=== PATIENT | male | born 1945 | race Caucasian/White ===

== ENCOUNTER 2017-08-03 06:09 | Inpatient (IN) | payer OTHER, MEDICARE ==
[2017-08-03] MEDS ORDERED: LORazepam 2 MG/ML INJ IV STA (06:24)
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
[2017-08-03 06:47] LABS: Basophils # (A) 0.1 k/uL (0-0.2); Basophils % (A) 1 %; Eosinophils # (A) 0.2 k/uL (0-0.7); Eosinophils % (A) 3 %; HCT 43.3 % (39.0-53.0); HGB 14.9 gm/dL (13.0-17.5); Lymphocytes # (A) 1.5 k/uL (1.0-4.8); Lymphocytes % (A) 24 %; MCH 34.4 pg (25.0-35.0); MCHC 34.5 g/dL (31.0-37.0); MCV 99.8 fL (80.0-100.0); Monocytes # (A) 0.3 k/uL (0-1.0); Monocytes % (A) 5 %; Neutrophils # (A) 3.9 k/uL (1.3-7.7); Neutrophils % (A) 66 %; Platelet Count 182 k/uL (150-450); RBC 4.34 m/uL (4.30-5.90); RDW 12.9 % (11.5-15.5)
[2017-08-03 07:02] LABS: ALT 26 U/L (21-72); AST 28 U/L (17-59); Alkaline Phosphatase 160 U/L (38-126); Anion Gap 12 mmol/L; Blood Urea Nitrogen 21 mg/dL (9-20); Calcium 9.3 mg/dL (8.4-10.2); Carbon Dioxide 24 mmol/L (22-30); Chloride 104 mmol/L (98-107); Glucose 144 mg/dL (74-99); Phenytoin (Dilantin) <3.0 ug/mL; Potassium 3.5 mmol/L (3.5-5.1); Sodium 140 mmol/L (137-145); Total Bilirubin 0.4 mg/dL (0.2-1.3); Total Protein 6.6 g/dL (6.3-8.2)
--- NOTE | 2017-08-03 07:11 | CT ---
EXAMINATION TYPE: CT brain cspine wo con DATE OF EXAM: 08/03/2017 COMPARISON: CT brain February 03, 2015. CT brain and cervical spine November 25, 2013 HISTORY: seizure with headache and neck pain. CT DLP: 1567.3 mGycm. Automated Exposure Control for Dose Reduction was Utilized. TECHNIQUE: CT scan of the head and cervical spine are performed without contrast. FINDINGS: There is no acute intracranial hemorrhage or midline shift identified. There is mild vent ricular and sulcal prominence. There is mild low-attenuation in the periventricular white matter. The calvarium is intact The globes are intact and the visualized sinuses are clear. Cervical spine is visualized in its entirety from C1 through upper thoracic levels and demonstrates s traightened alignment without evidence of acute fracture or dislocation. Prevertebral soft tissue ap pears within normal limits. The C1-C2 articulation is within normal limits on the coronal images. Vertebral body heights are maintained. There is mild to moderate disc space narrowing and spurring C5 -C6, C6-C7, and C7-T1 levels redemonstrated. Spinal canal is grossly preserved. Review of axial images shows right-sided uncovertebral facet degenerative changes C2-C3 and C3-C4 lev el and more prominent findings right C4-C5 level contributing to moderate to severe right-sided neura l foraminal narrowing on axial image 51. Thyroid gland is normal in size. Visualized lung apices show asymmetric dependent groundglass opacity possible atelectasis versus infiltrate on the right side, c orrelate clinically. IMPRESSION: 1. There is no acute fracture or dislocation evident in the cervical spine. 2. No acute intracranial hemorrhage or midline shift is seen.
[2017-08-03] MEDS ORDERED: PHENYTOIN SODIUM INJ 50 MG/ML 2 ML VIAL IVP STA (07:28)
[2017-08-03] MEDS ORDERED: PHENYTOIN SODIUM INJ 1,000 MG in SODIUM CHLORIDE 0.9% 100 ML IVPB STA (07:30)
[2017-08-03] MEDS ORDERED: HYDROmorphone 4 MG/ML 1 ML SYRINGE IVP PRN (07:33)
[2017-08-03] MEDS ORDERED: NALOXONE 0.4 MG/ML 1 ML VIAL IV PRN (07:33)
[2017-08-03] MEDS ORDERED: LORazepam 2 MG/ML INJ IV PRN (07:33)
[2017-08-03] MEDS ORDERED: ONDANSETRON 4 MG/2 ML VIAL IVP PRN (07:33)
[2017-08-03 10:08] LABS: Amphetamine Screen,Urine Not Detected (NotDetected); Barbiturate Screen,Urine Detected (NotDetected); Benzodiazepines Screen,Urine Not Detected (NotDetected); Cocaine Screen,Urine Not Detected (NotDetected); Methadone Screen, Urine Not Detected (NotDetected); Opiate Screen,Urine Not Detected (NotDetected); Oxycodone Screen, Urine Not Detected (NotDetected); Phencyclidine Screen,Urine Not Detected (NotDetected); Tricyclic Antidepressant,Urine Not Detected (NotDetected); Urn Cannabinoid Scrn Not Detected (NotDetected)
[2017-08-03] MEDS ORDERED: ALPRAZolam 0.25 MG TAB PO PRN (10:20)
[2017-08-03 11:21] LABS: Troponin I 0.033 ng/mL (0.000-0.034)
[2017-08-03 11:31] LABS: Creatine Kinase MB 3.9 ng/mL (0.0-2.4)
[2017-08-03] MEDS: ACETAMINOPHEN TAB 325 MG TAB PO PRN ×2 (13:15→20:47)
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
[2017-08-03] MEDS: PHENYTOIN SODIUM EXTENDED 100 MG CAP PO SCH (15:54)
--- NOTE | 2017-08-03 16:45 | ECHOF ---
Referral Reason:arrhythmia MEASUREMENTS -------- HEIGHT: 175.3 cm WEIGHT: 78.5 kg BP: 113/75 RVIDd: 3.0 cm (< 3.3) IVSd: 1.1 cm (0.6 - 1.1) LVIDd: 4.9 cm (3.9 - 5.3) LVPWd: 1.1 cm (0.6 - 1.1) IVSs: 1.6 cm LVIDs: 3.3 cm LVPWs: 1.6 cm LA Diam: 3.2 cm (2.7 - 3.8) LAESV Index (A-L): 18.94 ml/m Ao Diam: 3.4 cm (2.0 - 3.7) AV Cusp: 2.2 cm (1.5 - 2.6) MV EXCURSION: 16.594 mm (> 18.000) MV EF SLOPE: 54 mm/s (70 - 150) EPSS: 0.6 cm MV E Freddy: 0.70 m/s MV DecT: 309 ms MV A Freddy: 1.06 m/s MV E/A Ratio: 0.66 AV maxP.07 mmHg AV meanP.67 mmHg RAP: 5.00 mmHg RVSP: 36.22 mmHg FINDINGS -------- Sinus rhythm. This was a technically good study. The left ventricular size is normal. There is borderline concentric left ventricular hypertrophy. Overall left ventricular systolic function is normal with, an EF between 55 - 60 %. The right ventricle is normal in size. Normal LA size by volume 22+/-6 ml/m2. The right atrium is normal in size. There is mild aortic valve sclerosis. There is mild aortic regurgitation. The mitral valve is normal. There is trace mitral regurgitation. Mild tricuspid regurgitation present. There is mild pulmonary hypertension. The right ventricular systolic pressure, as measured by Doppler, is 36.22mmHg. There is no pulmonic regurgitation present. The aortic root size is normal. Normal inferior vena cava with normal inspiratory collapse consistent with estimated right atrial pre ssure of 5 mmHg. There is no pericardial effusion. CONCLUSIONS -------- 1. Sinus rhythm. 2. This was a technically good study. 3. The left ventricular size is normal. 4. There is borderline concentric left ventricular hypertrophy. 5. Overall left ventricular systolic function is normal with, an EF between 55 - 60 %. 6. Normal LA size by volume 22+/-6 ml/m2. 7. There is mild aortic valve sclerosis. 8. There is mild aortic regurgitation. 9. There is trace mitral regurgitation. 10. Mild tricuspid regurgitation present. 11. There is mild pulmonary hypertension. 12. The right ventricular systolic pressure, as measured by Doppler, is 36.22mmHg. 13. There is no pulmonic regurgitation present. 14. The aortic root size is normal. 15. Normal inferior vena cava with normal inspiratory collapse consistent with estimated right atrial pressure of 5 mmHg. 16. There is no pericardial effusion. CUP MACHINE OPERATOR: Nathaly Balbuena RDCS
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
[2017-08-03] MEDS: HEPARIN SODIUM,PORCINE 5,000 UNIT/ML 1 ML VIAL SQ SCH (20:43)
[2017-08-03] MEDS ORDERED: HYDROmorphone 0.5 MG/0.5 ML SYRINGE IVP PRN (20:49)
[2017-08-03] MEDS ORDERED: ASPIRIN 81 MG PO SCH (21:00)
[2017-08-03] MEDS ORDERED: TRIAMCINOLONE ACET 0.1% OINTMENT 15 GM TUBE TOPICAL SCH (21:00)
[2017-08-03] MEDS ORDERED: ATORVASTATIN 20 MG TAB PO SCH (21:00)
[2017-08-03 23:31] VITALS: RESP 16
[2017-08-04] MEDS ORDERED: PANTOPRAZOLE 40 MG TABLET PO SCH (07:30)
[2017-08-04 07:45] VITALS: BP 92/55; PULSE 68; TEMP 97.4
[2017-08-04 07:51] LABS: Basophils % (A) 1 %; Eosinophils # (A) 0.1 k/uL (0-0.7); Eosinophils % (A) 2 %; HCT 44.8 % (39.0-53.0); HGB 14.5 gm/dL (13.0-17.5); Lymphocytes # (A) 0.9 k/uL (1.0-4.8); Lymphocytes % (A) 20 %; MCH 33.6 pg (25.0-35.0); MCHC 32.4 g/dL (31.0-37.0); MCV 103.9 fL (80.0-100.0); Macrocytosis Slight; Mean Platelet Volume 6.6; Monocytes # (A) 0.4 k/uL (0-1.0); Monocytes % (A) 9 %; Neutrophils % (A) 68 %; Platelet Count 176 k/uL (150-450); RBC 4.32 m/uL (4.30-5.90); RDW 12.9 % (11.5-15.5); WBC 4.5 k/uL (3.8-10.6)
[2017-08-04 08:05] LABS: Calcium 9.3 mg/dL (8.4-10.2); Potassium 4.4 mmol/L (3.5-5.1)
[2017-08-04 08:16] LABS: Phenytoin (Dilantin) 12.3 ug/mL
[2017-08-04] MEDS: PHENYTOIN SODIUM EXTENDED 100 MG CAP PO SCH (08:53)
[2017-08-04] MEDS: HEPARIN SODIUM,PORCINE 5,000 UNIT/ML 1 ML VIAL SQ SCH (08:53)
--- NOTE | 2017-08-04 19:40 | EEG ---
ELECTROENCEPHALOGRAM REPORT DATE OF EE08/04/2017. REFERRING PHYSICIAN: Dr. Glynn. CONSULTING/INTERPRETING PHYSICIAN: Dr. Naga Blue MD ELECTROENCEPHALOGRAPHIC EXAMINATION REPORT: INDICATION FOR EXAMINATION: This patient is a 72-year-old male with history of underlying seizure disorder. Patient admitted with breakthrough seizures and subtherapeutic Dilantin level. AGE: [age]. EEG FINDINGS: A routine 21 channel awake digital EEG recording was accomplished utilizing the 10-20 international system with bipolar and referential montages some. The background activity in the most alert resting state consists of a low to medium amplitude, fairly well-developed well sustained 7-8 Hz activity over the posterior head regions. This posterior rhythm attenuates to eye opening. There is a small amount of low amplitude 18-20 Hz beta activity seen maximally over the anterior head regions. Muscle and movement artifact was observed on a few occasions during the tracing. Hyperventilation was not performed. Photic stimulation at flash frequencies of 2-30 Hz produced a minimal occipital driving response. No epileptiform discharges were seen. IMPRESSION: This EEG is within normal limits for the patient's age. The EEG failed to reveal any focal, lateralized, or epileptiform abnormalities. Clinical correlation is recommended. MMODL / IJN: [id number] /
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
== END 2017-08-04 15:35 | disposition home or self-care (01) | DRG 101 ==
LOC: EC 06:09 → 5ONC 07:34 → 5MS5E 08-04 03:57
PROVIDERS: ADMIT Hospitalist; ATTEND Hospitalist
DX: G40.209 Localization-related (focal) (partial) symptomatic epilepsy and epileptic syndromes with complex partial seizures, not intractable, without status epilepticus (principal); N18.3 Chronic kidney disease, stage 3 (moderate); E78.5 Hyperlipidemia, unspecified; R40.2362 Coma scale, best motor response, obeys commands, at arrival to emergency department; R40.2142 Coma scale, eyes open, spontaneous, at arrival to emergency department; R40.2252 Coma scale, best verbal response, oriented, at arrival to emergency department; M25.511 Pain in right shoulder; H91.90 Unspecified hearing loss, unspecified ear; Z79.82 Long term (current) use of aspirin; Z79.899 Other long term (current) drug therapy; Z87.891 Personal history of nicotine dependence; Z85.828 Personal history of other malignant neoplasm of skin; Z90.49 Acquired absence of other specified parts of digestive tract; Z86.010 Personal history of colon polyps; W06.XXXA Fall from bed, initial encounter
CPT/HCPCS: 36415; 70450; 72125; 80048; 80053; 80185; 80306; 82553; 83735; 83880; 84484; 85025; 93005; 93306; 95819; 96365; 96375; 99291

== ENCOUNTER → 2017-12-05 | Outpatient (CLI) | payer MEDICARE | END | disposition home or self-care (01) | LOC: LABWHC1 08:00 | PROVIDERS: ATTEND Psychiatry & Neurology Neurology | DX: G40.209 Localization-related (focal) (partial) symptomatic epilepsy and epileptic syndromes with complex partial seizures, not intractable, without status epilepticus (principal) | CPT/HCPCS: 36415; 80185 ==

== ENCOUNTER 2021-01-04 08:05 | Day surgery (SDC) | payer MEDICARE ==
[2020-12-31 14:29] VITALS: BMI 23.2
[~2021-01-04 08:05] MED LIST: LACTATED RINGERS 1,000 ML IV SCH
[2021-01-04 08:39] VITALS: RESP 16; TEMP 97
[2021-01-04] MEDS ORDERED: LIDOCAINE 1% INJ 10MG/ML (20 ML MDV) ONE (09:18)
[2021-01-04] MEDS ORDERED: PROPOFOL 10 MG/ML 20 ML VIAL IV ONE (09:18)
--- NOTE | 2021-01-04 09:53 | P.PCN ---
Date of Procedure: 01/04/21 Description of Procedure: BRIEF HISTORY: Patient is a 75-year-old male presenting for outpatient colonoscopy for history of colon polyps. Last colonoscopy in 2016 with polypectomy and diverticulosis. No change in bowel habits or family history of colon cancer. PROCEDURE PERFORMED: Colonoscopy with polypectomy. PREOPERATIVE DIAGNOSIS: History of colon polyps, last colonoscopy 2015. ESTIMATED BLOOD LOSS: Minimal. IV sedation per Anesthesia. PROCEDURE: After informed consent was obtained, the patient, was brought into the endoscopy unit. IV sedation was administered by Anesthesia under continuous monitoring. Digital rectal examination was normal. Initially the Olympus CF-190 flexible video colonoscope was then inserted in the rectum, gradually advanced into the cecum without any difficulty. Careful examination was performed as the scope was gradually being withdrawn. Ileocecal valve and the appendiceal orifice were visualized and appeared normal. Prep was excellent. Mucosa of the cecum, ascending colon, transverse colon, descending colon, sigmoid colon, and rectum appeared normal. A few scattered diverticula noted in the sigmoid colon. 2 polyps measuring 4-5 mm in size removed from the hepatic flexure and ascending colon with cold snare polypectomy. Flat 13 mm cecal polyp removed from the cecum by the appendiceal orifice in piecemeal fashion with cold snare polypectomy. Retroflexion was performed in the rectum and no lesions were seen. The patient tolerated the procedure well. IMPRESSION: Piecemeal resection of flat cecal polyp with cold snare. 2 sessile polyps removed with cold snare polypectomy from the ascending colon and hepatic flexure. Mild sigmoid diverticulosis. RECOMMENDATIONS: Findings of this examination were discussed with the patient and his family. Okay to resume diet. Okay to resume medications. Await pathology from polypectomies. Recommend repeat colonoscopy in 6-12 months for piecemeal resection of tubulovillous-appearing cecal polyp, pending pathology from polypectomies.
[2021-01-04 10:16] VITALS: BP 135/79; PULSE 62
== END 2021-01-04 10:32 | disposition home or self-care (01) ==
LOC: ORWHC2ENDO 08:05
PROVIDERS: ATTEND Internal Medicine
DX: Z12.11 Encounter for screening for malignant neoplasm of colon (principal); Z86.010 Personal history of colon polyps; K57.90 Diverticulosis of intestine, part unspecified, without perforation or abscess without bleeding; E78.5 Hyperlipidemia, unspecified; Z87.891 Personal history of nicotine dependence; N18.9 Chronic kidney disease, unspecified; R56.9 Unspecified convulsions; Z79.899 Other long term (current) drug therapy
CPT/HCPCS: 88305; 45385; J2001; J2704

== ENCOUNTER 2021-01-17 07:22 | Emergency (ER) | payer MEDICARE, OTHER ==
[2021-01-17 07:27] VITALS: PULSE 62; RESP 16; TEMP 97.9
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
[2021-01-17] MEDS ORDERED: DIPH,PERTUS(ACELL)TETVAC-LF 0.5 ML VIAL IM ONE (08:14)
[2021-01-17 08:15] LABS: Basophils % (A) 0 %; Eosinophils # (A) 1.1 k/uL (0-0.7); Eosinophils % (A) 15 %; HCT 43.1 % (39.0-53.0); HGB 14.7 gm/dL (13.0-17.5); Lymphocytes # (A) 1.4 k/uL (1.0-4.8); Lymphocytes % (A) 19 %; MCH 34.9 pg (25.0-35.0); MCHC 34.1 g/dL (31.0-37.0); MCV 102.5 fL (80.0-100.0); Macrocytosis Slight; Mean Platelet Volume 7.1; Monocytes # (A) 0.5 k/uL (0-1.0); Monocytes % (A) 6 %; Neutrophils # (A) 4.3 k/uL (1.3-7.7); Neutrophils % (A) 58 %; Platelet Count 212 k/uL (150-450); RDW 13.4 % (11.5-15.5); WBC 7.4 k/uL (3.8-10.6)
[2021-01-17 08:25] LABS: Albumin 4.3 g/dL (3.5-5.0); Calcium 9.1 mg/dL (8.4-10.2); Total Bilirubin 0.3 mg/dL (0.2-1.3); Total Protein 6.9 g/dL (6.3-8.2)
--- NOTE | 2021-01-17 08:39 | XR ---
EXAMINATION TYPE: XR hand complete LT DATE OF EXAM: 01/17/2021 COMPARISON: NONE HISTORY: 75 years Male. STUDY INDICATION GIVEN: Cellulitis, rule out foreign body TECHNIQUE: 3 radiographs of the left hand FINDINGS AND IMPRESSION: A tiny radiodense focus is seen in the ulnar aspect of the hand at the level of the proximal metacarp al. This may represent a foreign body. Mild diffuse soft tissue edema demonstrated in the hand. Changes related to osteoarthrosis. No acute osseous abnormality.
[2021-01-17 09:30] VITALS: BP 119/80
== END 2021-01-17 09:29 | disposition home or self-care (01) ==
LOC: EC 07:22
DX: L03.012 Cellulitis of left finger (principal); N18.9 Chronic kidney disease, unspecified; E78.5 Hyperlipidemia, unspecified; G40.909 Epilepsy, unspecified, not intractable, without status epilepticus; Z23 Encounter for immunization; Z79.899 Other long term (current) drug therapy; Z82.49 Family history of ischemic heart disease and other diseases of the circulatory system; Z85.828 Personal history of other malignant neoplasm of skin
CPT/HCPCS: 96365 ×2; 90471 ×2; 99283 ×2; 36415; 80053; 82550; 85025; 87040; 73130; 90715; J0690

== ENCOUNTER → 2021-01-18 | Outpatient (CLI) | payer OTHER ==
--- NOTE | 2021-01-18 12:49 | US ---
EXAMINATION TYPE: US thyroid st tissue head/neck DATE OF EXAM: 01/18/2021 COMPARISON: NONE CLINICAL HISTORY: 75-year-old male R94.6 ABN THYROID FUNCTIONS. GLAND SIZE: Right Lobe: 5.3 x 1.3 x 1.7 cm Overall Parenchyma: homogenous Left Lobe: 3.6 x 1.0 x 1.4 cm Overall Parenchyma: homogeneous Isthmus Thickness: 0.2 cm NODULES RIGHT: # of nodules measured on right: 0 LEFT: # of nodules measured on left: 0 ISTHMUS: # of nodules measured in the isthmus: 0 Bilateral neck scanned, no evidence of lymphadenopathy. IMPRESSION: Asymmetrically larger right lobe of the thyroid gland but with overall, normal homogeneous appearance and no discrete nodule seen.
== END | disposition home or self-care (01) ==
LOC: RADUSWWP 12:07
PROVIDERS: ATTEND Family Medicine
DX: E07.9 Disorder of thyroid, unspecified (principal)
CPT/HCPCS: 76536

== ENCOUNTER 2021-07-23 11:06 | Day surgery (SDC) | payer MEDICARE, OTHER ==
[2021-07-21 11:17] VITALS: BMI 22.4
[~2021-07-23 11:06] MED LIST changes: +LIDOCAINE 1% (10MG/ML) FOR IV START INTRADERMA PRN
[2021-07-23 11:34] VITALS: TEMP 97.8
[2021-07-23] MEDS ORDERED: PROPOFOL 10 MG/ML 20 ML VIAL IV ONE (11:35)
--- NOTE | 2021-07-23 11:53 | P.PCN ---
Date of Procedure: 07/23/21 Procedure(s) Performed: BRIEF HISTORY: Patient is a 76-year-old pleasant white male scheduled for an elective colonoscopy as a part of evaluation of prior history of colon polyps. His last colonoscopy was done 8 months ago and was noted to have a 1.5 cm cecal polyp that was removed by piecemeal snare polypectomy. Biopsy revealed adenoma. He scheduled for repeat colonoscopy to ensure complete polypectomy. PROCEDURE PERFORMED: Colonoscopy with snare polypectomy. PREOPERATIVE DIAGNOSIS: Follow-up colon polyps. IV sedation per Anesthesia. PROCEDURE: After informed consent was obtained, the patient, was brought into the endoscopy unit. IV sedation was administered by Anesthesia under continuous monitoring. Digital rectal examination was normal. Initially the Olympus CF-160 flexible video colonoscope was then inserted in the rectum, gradually advanced into the cecum without any difficulty. Careful examination was performed as the scope was gradually being withdrawn. Ileocecal valve and the appendiceal orifice were visualized and appeared normal. Prep was excellent. Mucosa of the cecum, ascending colon, transverse colon, descending colon, sigmoid colon, and rectum appeared normal. In the rectosigmoid colon at 20 cm from anal verge there was a 1 cm polyp removed by snare polypectomy. Retroflexion was performed in the rectum and no lesions were seen. The patient tolerated the procedure well. IMPRESSION: 1 cm rectosigmoid colon polyp status post polypectomy Rest of the colon appeared normal RECOMMENDATIONS: Findings of this examination were discussed with the patient as well as his family. He was advised to follow with the biopsy results. If the biopsy reveals adenoma, he can have a repeat colonoscopy in 3 years
[2021-07-23 11:59] VITALS: RESP 18
[2021-07-23 12:15] VITALS: BP 118/64; PULSE 64
== END 2021-07-23 12:48 | disposition home or self-care (01) ==
LOC: ORWHC2ENDO 11:06
PROVIDERS: ATTEND Internal Medicine Gastroenterology
DX: Z12.11 Encounter for screening for malignant neoplasm of colon (principal); D12.7 Benign neoplasm of rectosigmoid junction; Z86.010 Personal history of colon polyps; E78.5 Hyperlipidemia, unspecified; R56.9 Unspecified convulsions; Z98.890 Other specified postprocedural states; Z85.828 Personal history of other malignant neoplasm of skin; Z79.899 Other long term (current) drug therapy
CPT/HCPCS: 88305; 45385; J2704

== ENCOUNTER 2022-07-22 10:05 | Day surgery (SDC) | payer OTHER ==
[2022-07-22 11:45] VITALS: RESP 16; TEMP 97
[2022-07-22] MEDS ORDERED: PROPOFOL 10 MG/ML 20 ML VIAL IV ONE (12:53)
--- NOTE | 2022-07-22 13:15 | P.PCN ---
Date of Procedure: 07/22/22 Procedure(s) Performed: BRIEF HISTORY: Patient is a 77-year-old pleasant white male scheduled for an elective colonoscopy as a part of evaluation of prior history of colon polyps PROCEDURE PERFORMED: Colonoscopy. PREOPERATIVE DIAGNOSIS: History of colon polyps. IV sedation per Anesthesia. PROCEDURE: After informed consent was obtained, the patient, was brought into the endoscopy unit. IV sedation was administered by Anesthesia under continuous monitoring. Digital rectal examination was normal. Initially the Olympus CF-160 flexible video colonoscope was then inserted in the rectum, gradually advanced into the cecum without any difficulty. Careful examination was performed as the scope was gradually being withdrawn. Ileocecal valve and the appendiceal orifice were visualized and appeared normal. Prep was excellent. Mucosa of the cecum, ascending colon, transverse colon, descending colon, sigmoid colon, and rectum appeared normal. Retroflexion was performed in the rectum and no lesions were seen. The patient tolerated the procedure well. IMPRESSION: Normal-appearing colon from rectum to cecum with no evidence of colorectal neoplasia . RECOMMENDATIONS: Findings of this examination were discussed with the patient as well as his family. He was advised to have a repeat colonoscopy in 5 years from now based on his overall medical condition..
[2022-07-22 13:35] VITALS: BP 122/78; PULSE 63
== END 2022-07-22 13:50 | disposition home or self-care (01) ==
LOC: ORWHC2ENDO 10:05
PROVIDERS: ATTEND Internal Medicine Gastroenterology
DX: Z12.11 Encounter for screening for malignant neoplasm of colon (principal); I10 Essential (primary) hypertension; F17.200 Nicotine dependence, unspecified, uncomplicated; M10.9 Gout, unspecified; G40.909 Epilepsy, unspecified, not intractable, without status epilepticus; H91.90 Unspecified hearing loss, unspecified ear; Z79.899 Other long term (current) drug therapy; Z86.010 Personal history of colon polyps
CPT/HCPCS: 45378

== ENCOUNTER 2022-09-28 14:37 | Emergency (ER) | payer OTHER ==
[2022-09-28] MEDS ORDERED: PHENYTOIN SODIUM INJ 1,000 MG in SODIUM CHLORIDE 0.9% 100 ML IVPB STA (15:17)
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
[2022-09-28 16:04] LABS: Basophils % (A) 0 %; Eosinophils # (A) 0.1 k/uL (0-0.7); Eosinophils % (A) 2 %; HGB 13.5 gm/dL (13.0-17.5); Lymphocytes # (A) 0.6 k/uL (1.0-4.8); Lymphocytes % (A) 9 %; MCH 34.6 pg (25.0-35.0); MCHC 34.5 g/dL (31.0-37.0); MCV 100.4 fL (80.0-100.0); Mean Platelet Volume 6.9; Monocytes # (A) 0.4 k/uL (0-1.0); Monocytes % (A) 5 %; Neutrophils # (A) 5.6 k/uL (1.3-7.7); Neutrophils % (A) 83 %; Platelet Count 154 k/uL (150-450); RBC 3.88 m/uL (4.30-5.90); RDW 12.9 % (11.5-15.5); WBC 6.7 k/uL (3.8-10.6)
[2022-09-28 16:34] LABS: ALT 21 U/L (4-49); AST 25 U/L (17-59); African American GFR (CKD) 35 (>60 ml/min/1.73 sqM); Albumin 3.8 g/dL (3.5-5.0); Alkaline Phosphatase 130 U/L (38-126); Anion Gap 12 mmol/L; Blood Urea Nitrogen 30 mg/dL (9-20); Calcium 8.4 mg/dL (8.4-10.2); Carbon Dioxide 21 mmol/L (22-30); Chloride 103 mmol/L (98-107); Glucose 225 mg/dL (74-99); Magnesium 2.4 mg/dL (1.6-2.3); Non-African American GFR(CKD) 30 (>60 ml/min/1.73 sqM); Phenytoin (Dilantin) <3.0 ug/mL; Potassium 3.4 mmol/L (3.5-5.1); Sodium 136 mmol/L (137-145); Total Bilirubin 0.3 mg/dL (0.2-1.3); Total Protein 6.3 g/dL (6.3-8.2)
[2022-09-28 17:55] VITALS: BP 103/61; PULSE 75; RESP 15; TEMP 98.9
== END 2022-09-28 18:22 | disposition home or self-care (01) ==
LOC: EC 14:37
DX: G40.909 Epilepsy, unspecified, not intractable, without status epilepticus (principal); Z87.891 Personal history of nicotine dependence; Z88.6 Allergy status to analgesic agent
CPT/HCPCS: 36415; 93005; 80053; 80185; 83735; 85025; 99284; 96365; J1165

== ENCOUNTER 2023-05-08 11:30 | Emergency (ER) | payer MEDICARE, OTHER ==
[2023-05-08] MEDS ORDERED: methylPREDNISolone SOD SUCCI 125 MG/2 ML VIAL IV STA (11:47)
[2023-05-08] MEDS ORDERED: KETOROLAC 15 MG/ML 1 ML VIAL IVP STA (11:47)
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
--- NOTE | 2023-05-08 12:20 | XR ---
EXAMINATION TYPE: XR lumbosacral spine min 4V DATE OF EXAM: 05/08/2023 CLINICAL HISTORY: pain COMPARISON: NONE TECHNIQUE: Frontal, lateral, and oblique images of the lumbar spine are obtained. FINDINGS: There are 5 lumbar type vertebral bodies identified. The lumbar spine shows satisfactory alignment without evidence of acute fracture or dislocation. Vertebral body heights are within normal limits. Moderate degenerative disc space narrowing L3-4 through L5-S1. Mild facet joint arthropathy. The overlying soft tissue appears unremarkable. IMPRESSION: No acute fracture or dislocation is seen in the lumbar spine.ICD 10 NO FRACTURE, INITIAL EVALUATION
[2023-05-08] MEDS ORDERED: HYDROmorphone 0.5 MG/0.5 ML SYRINGE IVP STA (13:26)
[2023-05-08] MEDS ORDERED: ACET/COD 300 MG/30 MG STARTER PACK 6 TAB BTL PO STA (13:30)
[2023-05-08 13:34] VITALS: RESP 18
[2023-05-08 13:59] VITALS: BP 137/82; PULSE 72; TEMP 97
== END 2023-05-08 13:57 | disposition home or self-care (01) ==
LOC: EC 11:30
DX: M54.42 Lumbago with sciatica, left side (principal); Z87.891 Personal history of nicotine dependence; Z88.8 Allergy status to other drugs, medicaments and biological substances
CPT/HCPCS: 72110; 99283; 96374; 96375 ×2; J2930; J1885; J1170

== ENCOUNTER 2024-06-21 11:06 | Observation (INO) | payer OTHER, MEDICARE ==
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
[2024-06-21 12:03] LABS: Basophils % (A) 1 %; Eosinophils # (A) 0.3 k/uL (0-0.7); Eosinophils % (A) 5 %; HCT 44.2 % (39.0-53.0); HGB 14.3 gm/dL (13.0-17.5); Lymphocytes # (A) 1.3 k/uL (1.0-4.8); Lymphocytes % (A) 20 %; MCH 34.3 pg (25.0-35.0); MCHC 32.4 g/dL (31.0-37.0); MCV 105.9 fL (80.0-100.0); Macrocytosis Moderate; Mean Platelet Volume 6.9; Monocytes # (A) 0.3 k/uL (0-1.0); Monocytes % (A) 5 %; Neutrophils # (A) 4.7 k/uL (1.3-7.7); Neutrophils % (A) 69 %; Platelet Count 255 k/uL (150-450); RBC 4.18 m/uL (4.30-5.90); RDW 13.4 % (11.5-15.5); WBC 6.8 k/uL (3.8-10.6)
[2024-06-21 12:17] LABS: ALT 12 U/L (4-49); AST 21 U/L (17-59); African American GFR (CKD) 34 (>60 ml/min/1.73 sqM); Albumin 4.5 g/dL (3.5-5.0); Alkaline Phosphatase 212 U/L (38-126); Anion Gap 6 mmol/L; Blood Urea Nitrogen 34 mg/dL (9-20); Calcium 9.3 mg/dL (8.4-10.2); Carbon Dioxide 29 mmol/L (22-30); Chloride 103 mmol/L (98-107); Creatine Kinase 57 U/L (55-170); Glucose 197 mg/dL (74-99); Non-African American GFR(CKD) 30 (>60 ml/min/1.73 sqM); Partial Thromboplastin Time 23.8 sec (22.0-30.0); Potassium 4.7 mmol/L (3.5-5.1); Prothrombin Time 11.4 sec (10.0-12.5); Sodium 138 mmol/L (137-145); Total Bilirubin 0.3 mg/dL (0.2-1.3); Total Protein 7.1 g/dL (6.3-8.2)
--- NOTE | 2024-06-21 13:32 | CT ---
EXAMINATION TYPE: CT brain wo con CT DLP: 1168.4 mGycm, Automated exposure control for dose reduction was used. DATE OF EXAM: 06/21/2024 1:19 PM COMPARISON: CT bases CLINICAL INDICATION:Male, 78 years old with history of Neuro deficit, acute, stroke suspected, Freque [place] falls TECHNIQUE: Brain: Multiple axial CT images of the brain were obtained without IV contrast. . Coronal and sagitta l reformats reviewed. FINDINGS: Brain: Extra-axial spaces: No abnormal extra-axial fluid collections. Ventricular system: Within normal limits Cerebral parenchyma: Cerebral atrophy. No acute intraparenchymal hemorrhage or mass effect. The self -white junction is well differentiated. Scattered hypoattenuating areas are seen within the periventr icular white matter. Cerebellum: Unremarkable. Mass effect: No evidence of midline shift. Intracranial vasculature: Atherosclerotic calcifications of the intracranial vessels. Soft tissues: Normal. Calvarium/osseous structures: No depressed skull fracture. Paranasal sinuses and mastoid air cells: Mild scattered paranasal sinus disease. Visualized orbits: Orbital contents are intact. IMPRESSION: 1. No acute intracranial process. 2. Nonspecific white matter changes, likely secondary to chronic small vessel ischemic disease. [facility], , 06/21/2024 1:30 PM
--- NOTE | 2024-06-21 13:39 | XR ---
EXAMINATION TYPE: XR chest 2V DATE OF EXAM: 06/21/2024 1:08 PM COMPARISON: 02/03/2015 CLINICAL INDICATION: Male, 78 years old with confusion, history of altered mental status, , TECHNIQUE: AP and lateral views FINDINGS: The cardiomediastinal silhouette, aorta, and pulmonary vasculature are within normal limits. Lungs an d pleural spaces are clear. IMPRESSION: No acute cardiopulmonary process. [facility], , 06/21/2024 1:36 PM
[2024-06-21] MEDS ORDERED: DEXTROSE 50% SYRINGE 50 ML IVP PRN ×2 (14:26)
[2024-06-21] MEDS ORDERED: NALOXONE 0.4 MG/ML 1 ML VIAL IV PRN ×2 (14:37→14:58)
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
--- NOTE | 2024-06-21 15:31 | US ---
EXAMINATION TYPE: US carotid duplex BILAT DATE OF EXAM: 06/21/2024 COMPARISON: 02/03/25 CLINICAL INDICATION: Male, 78 years old with history of CVA work up; possible cva Additional History: G45.9 Transient Ischemic Attack (TIA) various Most positive vascular findings of extracranial vessels; specified laterality eye & ear disorders TECHNIQUE: Grayscale, color Doppler and spectral Doppler evaluation of the bilateral carotid systems and vertebral arteries. Indirect Doppler criteria was utilized. FINDINGS: EXAM MEASUREMENTS: RIGHT: Peak Systolic Velocity (PSV) cm/sec ----- Right CCA: 91.5 ----- Right ICA: 117.7 ----- Right ECA: 82.7 ICA/CCA ratio: 1.3 RIGHT: End Diastole cm/sec ----- Right CCA: 26.0 ----- Right ICA: 38.6 ----- Right ECA: 14.1 LEFT: Peak Systolic Velocity (PSV) cm/sec ----- Left CCA: 83.1 ----- Left ICA: 94.0 ----- Left ECA: 106.9 ICA/CCA ratio: 1.1 LEFT: End Diastole cm/sec ----- Left CCA: 25.9 ----- Left ICA: 33.1 ----- Left ECA: 16.3 VERTEBRALS (direction of flow): Right Vertebral: Antegrade Left Vertebral: Antegrade Rhythm: Normal ROUTE SERVICE REPRESENTATIVE NOTES: plaque seen in bilateral bulbs Images show moderate atherosclerotic changes of the right carotid bifurcation. IMPRESSION: No hemodynamically significant internal carotid artery stenosis on either side. Criteria for Assigning % of Stenosis / Diameter reduction (Estimation based on the indirect measurements of the internal carotid artery velocities (ICA PSV). 1. Normal (no stenosis)=ICA PSV < 125 cm/s: ratio < 2.0: ICA EDV<40 cm/s. 2. Less than 50% stenosis=ICA PSV < 125 cm/s: ratio < 2.0: ICA EDV<40 cm/s. 3. 50 to 69% stenosis=ICA PSV of 125 to 230 cm/s: ration 2.0 ? 4.0: ICA EDV 40-100 cm/s. 4. Greater than 70% stenosis to near occlusion= ICA PSV > 230 cm/s: ratio > 4.0: ICA EDV > 100 cm/s. 5. Near occlusion= ICA PSV velocities may be low or undetectable: variable ratio and ICA EDV. 6. Total occlusion=unable to detect flow. [facility], , 06/21/2024 3:28 PM
[2024-06-21] MEDS: ASPIRIN 81 MG PO SCH (16:02)
[2024-06-21 17:15] LABS: Glucose,Whole Blood 78 mg/dL (70-110)
[2024-06-21] MEDS: INSULIN ASPART (NovoLOG) 100 UNIT/ML VIAL SQ SCH (17:18)
[2024-06-21] MEDS: VIT A,C & E-LUTEIN-MINERALS 1 EACH TAB PO SCH (22:43)
[2024-06-21] MEDS: ARTIFICIAL TEARS-HYPROMELLOSE DROPS 15 ML BTL BOTH EYES SCH (22:43)
[2024-06-21] MEDS: HEPARIN SODIUM,PORCINE 5,000 UNIT/ML 1 ML VIAL SQ SCH (22:58)
[2024-06-22 06:09] LABS: Glucose,Whole Blood 102 mg/dL (70-110)
[2024-06-22] MEDS: LEVOTHYROXINE 50 MCG TAB PO SCH (06:09)
[2024-06-22] MEDS: NON FORMULARY DRUG (Alendronate Sodium [Fosamax] 70 MG Tablet) PO SCH (08:23)
[2024-06-22] MEDS: CHOLECALCIFEROL 25 MCG (1000 IU) TABLET PO SCH (08:25)
[2024-06-22] MEDS: CALCIUM CARBONATE 500 MG CHEWABLE PO SCH (08:25)
[2024-06-22] MEDS: PHENYTOIN SODIUM EXTENDED 100 MG CAP PO SCH (08:43)
[2024-06-22 09:16] LABS: Basophils # (A) 0.06 X 10*3/uL (0.00-0.10); Eosinophils # (A) 0.43 X 10*3/uL (0.04-0.35); Eosinophils % (A) 7.4 %; HCT 40.5 % (39.6-50.0); HGB 14.1 g/dL (13.0-17.0); Lymphocytes # (A) 1.71 X 10*3/uL (0.90-5.00); Lymphocytes % (A) 29.2 %; MCH 36.2 pg (27.0-32.0); MCHC 34.8 g/dL (32.0-37.0); MCV 103.8 FL (80.0-97.0); Mean Platelet Volume 8.7 FL (9.5-12.2); Monocytes # (A) 0.64 X 10*3/uL (0.20-1.00); Monocytes % (A) 10.9 %; NRBC Per 100 WBC 0 X 10*3/uL (0.00-0.01); Neutrophils % (A) 51.3 %; Platelet Count 206 X 10*3/uL (140-440); RDW 13.5 % (11.5-14.5); WBC 5.85 X 10*3/uL (4.50-10.00)
[2024-06-22 10:19] LABS: ALT 9 U/L (10-49); AST 17 U/L (14-35); Albumin 3.9 g/dL (3.8-4.9); Albumin/Globulin Ratio 1.56 Ratio (1.60-3.17); Alkaline Phosphatase 219 U/L (41-126); BUN/Creat Ratio 15.72 Ratio (12.00-20.00); Blood Urea Nitrogen 28.3 mg/dL (9.0-27.0); Carbon Dioxide 27.2 mmol/L (21.6-31.8); Chloride 104 mmol/L (96-109); Chol/HDL Ratio 2.89 Ratio; Globulin 2.5 g/dL (1.6-3.3); Glucose 104 mg/dL (70-110); LDL Cholesterol,Calculated 126.2 mg/dL (0.0-131.0); Potassium 4.1 mmol/L (3.5-5.5); Sodium 141 mmol/L (135-145); Total Bilirubin 0.2 mg/dL (0.3-1.2); Total Protein 6.4 g/dL (6.2-8.2)
--- NOTE | 2024-06-22 11:36 | CA ---
Transthoracic Echo Report Name: Brody Simpson Age: 78 Gender: M : 1945 Exam Date: 06/22/2024 06:35 Exam Location: [facility] Ht (in): 66 Wt (lb): 149 Ordering Physician: Mary Cota MD Attending/Referring Phys: General Forecaster Poly Grant RDCS Procedure CPT: Indications: CVA work up Cardiac Hx: Technical Quality: Good Contrast 1: Total Dose (mL): Contrast 2: Total Dose (mL): MEASUREMENTS (Male / Female) Normal Values 2D ECHO LV Diastolic Diameter PLAX 5.1 cm 4.2 - 5.9 / 3.9 - 5.3 cm LV Systolic Diameter PLAX 3.5 cm IVS Diastolic Thickness 0.6 cm 0.6 - 1.0 / 0.6 - 0.9 cm LVPW Diastolic Thickness 0.7 cm 0.6 - 1.0 / 0.6 - 0.9 cm LV Relative Wall Thickness 0.3 LVOT Diameter 2.2 cm LV Diastolic Volume MOD BP 78.1 cm??? 67 - 155 / 56 - 104 cm??? LV Systolic Volume MOD BP 29.5 cm??? 22 - 58 / 19 - 49 cm??? LV Ejection Fraction MOD BP 62.2 % >= 55 % LV Cardiac Index MOD BP 1635.3 cm???/min???m??? LV Diastolic Volume MOD 4C 65.2 cm??? LV Systolic Volume MOD 4C 29.1 cm??? LV Ejection Fraction MOD 4C 55.4 % LV Cardiac Index MOD 4C 1216.4 cm???/min???m??? LV Diastolic Length 4C 6.7 cm LV Systolic Length 4C 5.5 cm LV Diastolic Volume MOD 2C 86.1 cm??? LV Systolic Volume MOD 2C 29.0 cm??? LV Ejection Fraction MOD 2C 66.3 % LV Cardiac Index MOD 2C 1922.8 cm???/min???m??? LV Diastolic Length 2C 7.3 cm LV Systolic Length 2C 5.7 cm LA Volume 45.6 cm??? 18 - 58 / 22 - 52 cm??? LA Volume Index 25.6 cm???/m??? 16 - 28 cm???/m??? Ascending Aorta Diameter 3.3 cm DOPPLER AV Peak Velocity 116.4 cm/s AV Peak Gradient 5.4 mmHg AV Mean Velocity 85.0 cm/s AV Mean Gradient 3.2 mmHg AV Velocity Time Integral 26.3 cm LVOT Peak Velocity 93.4 cm/s LVOT Peak Gradient 3.5 mmHg LVOT Velocity Time Integral 19.7 cm LVOT Stroke Volume 74.3 cm??? LVOT Stroke Volume Index 42.1 ml/m??? LVOT Cardiac Index 2501.5 cm???/min???m??? AV Area Cont Eq vti 2.8 cm??? AV Area Cont Eq pk 3.0 cm??? MV Area PHT 3.6 cm??? Mitral E Point Velocity 56.7 cm/s Mitral A Point Velocity 89.5 cm/s Mitral E to A Ratio 0.6 MV Deceleration Time 213.4 ms TR Peak Velocity 257.8 cm/s TR Peak Gradient 26.6 mmHg Right Atrial Pressure 10.0 mmHg Pulmonary Artery Systolic Pressu 36.6 mmHg Right Ventricular Systolic Press 36.6 mmHg PV Peak Velocity 104.2 cm/s PV Peak Gradient 4.3 mmHg FINDINGS Left Ventricle Left ventricular ejection fraction is estimated at 55-60 %. Left ventricular cavity size normal. Left ventricular wall thickness normal. No obvious regional wall motion abnormalities. Right Ventricle Mildly enlarged right ventricle with normal function. Borderline elevated right ventricular systolic pressure. Right Atrium Normal right atrial size. Left Atrium Normal left atrial size. Mitral Valve Mitral valve thickened. No evidence for mitral valve prolapse. No mitral stenosis. Mild mitral regurgitation. Aortic Valve Trileaflet aortic valve. No aortic stenosis. Mild aortic regurgitation. Tricuspid Valve Structurally normal tricuspid valve. No tricuspid stenosis. [id number] tricuspid regurgitation. Pulmonic Valve Pulmonic valve not well visualized. No pulmonic stenosis. No pulmonic regurgitation. Pericardium No pericardial effusion. Aorta Normal size aortic root and proximal ascending aorta. CONCLUSIONS Normal LV systolic function Mild mitral regurgitation Mild aortic regurgitation Mild to moderate tricuspid regurgitation Consider transesophageal echo if clinically indicated Previewed by: Dr. Jw Gilbert MD (Electronically Signed) Final Date: 22 June 2024 11:35
[2024-06-22 12:17] LABS: Glucose,Whole Blood 127 mg/dL (70-110)
--- NOTE | 2024-06-22 13:03 | P.PN ---
Subjective Progress Note Date: 06/22/24 Hospital Course: 78 years old male with past medical history with longstanding seizure disorder follows with the [facility], HLD, colonic polyps, who presented to the ER on 06/21 with feeling off balance, dizziness. In the ER patient was afebrile, normal heart rate, normotensive, satting well on room air. His lab work was significant for normal WBCs, hemoglobin, platelets. His sodium and potassium are normal, creatinine 2.06 which appears to be at baseline, last lab work from 09/2022 with creatinine of 2.03. Elevated blood glucose level 197, elevated alkaline phosphatase 212. EKG showed sinus rhythm, first-degree AV block, QTc 414, no signs of acute ischemia. CTA head showed no acute intracranial process, did reveal nonspecific white matter changes likely secondary to chronic small vessel ischemic disease. Chest x-ray with no acute process. NIH 0. Patient is admitted being admitted for further evaluation and stroke rule out, neurology consulted. CTA head was not done due to low GFR. Orthostatic vitals positive. Subjective: Seen and examined at bedside. No acute events overnight. Denies any further imbalance issues. Pertinent positives and negatives as discussed above, a complete review of systems was performed and all other systems are negative. Vitals Signs Reviewed. General: Nontoxic, no distress, appears at stated age Derm: Warm, dry Head: Atraumatic, normocephalic, symmetric Eyes: EOMI, no lid lag, anicteric sclera Mouth: No lip lesion, mucus membranes moist Cardiovascular: S1S2 reg, no murmur Lungs: CTA bilateral, no rhonchi, no rales, no accessory muscle use Abdominal: Soft, nontender to palpation, no guarding, no appreciable organomegaly Ext: No gross muscle atrophy, no edema, no contractures Neuro: CN II-XI grossly intact, no focal neuro deficits Psych: Alert, oriented, appropriate affect Data Reviewed Today: Pertinent Labs: WBC 5.85, hemoglobin 14.1, creatinine 1.8, total cholesterol 231, LDL 126, phenytoin level toxic at 23, blood sugars range between 78-1 27 Imaging: Echocardiogram showed normal LV systolic function, mild to moderate tricuspid regurgitation, mild mitral regurgitation, mild aortic regurgitation. Assessment and Plan: Active: Orthostatic hypotension Supratherapeutic Dilantin Disequilibrium History of seizure disorder -Patient started on aspirin 81 mg daily, consider adding rosuvastatin in outpatient -Neurology consulted, consider decreasing Dilantin dose given possible side effect -On normal saline 75 cc an hour for -Repeat orthostatic vitals tomorrow Type 2 diabetes -Sliding scale insulin, monitor for hypoglycemia Chronic: Hypothyroidism DVT ppx: Subcu heparin Code status: Full code Anticipated discharge place: Home Anticipated discharge time: Likely tomorrow Objective - Vital Signs Vital signs: Vital Signs Temp 98.7 F 06/22/24 07:00 Pulse 59 L 06/22/24 07:00 Resp 17 06/22/24 07:00 BP 117/70 06/22/24 07:00 Pulse Ox 97 06/22/24 07:00 FiO2 Intake & Output 06/21/24 06/22/24 06/22/24 18:59 06:59 18:59 Weight 67.585 kg 67.585 kg Other: # Voids 2 # Bowel Movements 0 - Labs CBC & Chem 7: 06/22/24 05:59 06/22/24 05:59 Labs: Abnormal Lab Results - Last 24 Hours (Table) 06/22/24 06/22/24 06/22/24 Range/Units 05:59 05:59 12:15 RBC 3.90 L (4.40-5.60) X 10*6/uL MCV 103.8 H (80.0-97.0) FL MCH 36.2 H (27.0-32.0) pg MPV 8.7 L (9.5-12.2) FL Eosinophils # 0.43 H (0.04-0.35) X 10*3/uL BUN 28.3 H (9.0-27.0) mg/dL Creatinine 1.8 H (0.6-1.5) mg/dL Est GFR (CKD-EPI) 38 L (>=60) POC Glucose (mg/dL) 127 H (70-110) mg/dL Albumin/Globulin Ratio 1.56 L (1.60-3.17) Ratio Cholesterol 231.00 H (0.00-200.00) mg/dL HDL Cholesterol 80.00 H (40.00-60.00) mg/dL
[2024-06-22 17:45] LABS: Glucose,Whole Blood 207 mg/dL (70-110)
[2024-06-22] MEDS: SODIUM CHLORIDE 0.9% 1,000 ML IV SCH (18:02)
[2024-06-22 20:35] LABS: Glucose,Whole Blood 111 mg/dL (70-110)
[2024-06-23 05:50] LABS: Glucose,Whole Blood 89 mg/dL (70-110)
[2024-06-23 06:11] VITALS: TEMP 98.3
[2024-06-23 07:28] VITALS: BP 123/78; PULSE 66; RESP 14
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
--- NOTE | 2024-06-23 11:22 | P.DS ---
Providers Date of admission: 06/21/24 14:38 Expected date of discharge: 06/23/24 Attending physician: Mary Cota MD Consults: 06/21/24 14:37 Consult Physician Urgent Consulting Provider: Ernie Rocha Consult Reason/Comments: balance disorder Do you want consulting provider notified?: Yes Primary care physician: [facility] Hospital Course: Discharge Diagnosis: Orthostatic hypotension Supratherapeutic Dilantin Disequilibrium History of seizure disorder Type 2 diabetes Hospital Course: 78 years old male with past medical history with longstanding seizure disorder follows with the [facility], HLD, colonic polyps, who presented to the ER on 06/21 with feeling off balance, dizziness. In the ER patient was afebrile, normal heart rate, normotensive, satting well on room air. His lab work was significant for normal WBCs, hemoglobin, platelets. His sodium and potassium are normal, creatinine 2.06 which appears to be at baseline, last lab work from 09/2022 with creatinine of 2.03. Elevated blood glucose level 197, elevated alkaline phosphatase 212. EKG showed sinus rhythm, first-degree AV block, QTc 414, no signs of acute ischemia. CTA head showed no acute intracranial process, did reveal nonspecific white matter changes likely secondary to chronic small vessel ischemic disease. Chest x-ray with no acute process. NIH 0. Patient is admitted being admitted for further evaluation and stroke rule out, neurology consulted. CTA head was not done due to low GFR. Orthostatic vitals positive. Dilantin level slightly supratherapeutic. Repeat orthostatic vitals after IV fluids were negative. Discussed with neurology, patient to continue on current dose of Dilantin given elective seizures in the past after decreasing dose. Patient denies any further presenting symptoms at the time of discharge. Outpatient follow-up and repeat Dilantin level. Patient seen and examined at bedside. Vital signs reviewed and stable. General: Nontoxic, no distress, appears at stated age Derm: Warm, dry Head: Atraumatic, normocephalic, symmetric Eyes: EOMI, no lid lag, anicteric sclera Mouth: No lip lesion, mucus membranes moist Cardiovascular: S1S2 reg, no murmur Lungs: CTA bilateral, no rhonchi, no rales, no accessory muscle use Abdominal: Soft, nontender to palpation, no guarding, no appreciable organomegaly Ext: No gross muscle atrophy, no edema, no contractures Neuro: CN II-XI grossly intact, no focal neuro deficits Psych: Alert, oriented, appropriate affect A total of 32 minutes of time were spent preparing this complex discharge summary. Patient was discharged on 06/23/2024 at [facility]. Plan - Discharge Summary Discharge Rx Participant: Yes New Discharge Prescriptions: Continue Phenytoin Sodium Extended [Dilantin] 400 mg PO DAILY Calcium Carbonate 500 mg PO DAILY Alendronate Sodium [Fosamax] 70 mg PO SA Levothyroxine Sodium [Synthroid] 50 mcg PO DAILY Cholecalciferol [Vitamin D3 (25 Mcg = 1000 Iu)] 50 mcg PO DAILY Carboxymethylcellulose Sodium [Refresh Tears] 1 drop BOTH EYES BID Vit C/E/Zn/Coppr/Lutein/Zeaxan [Preservision Areds 2 Softgel] 1 cap PO BID Discharge Medication List Phenytoin Sodium Extended [Dilantin] 400 mg PO DAILY 11/24/13 [History] Alendronate Sodium [Fosamax] 70 mg PO SA 09/28/22 [History] Calcium Carbonate 500 mg PO DAILY 09/28/22 [History] Cholecalciferol [Vitamin D3 (25 Mcg = 1000 Iu)] 50 mcg PO DAILY 09/28/22 [History] Levothyroxine Sodium [Synthroid] 50 mcg PO DAILY 09/28/22 [History] Carboxymethylcellulose Sodium [Refresh Tears] 1 drop BOTH EYES BID 06/21/24 [History] Vit C/E/Zn/Coppr/Lutein/Zeaxan [Preservision Areds 2 Softgel] 1 cap PO BID 06/21/24 [History] Follow up Appointment(s)/Referral(s): [facility],Clinic [Primary Care Provider] - 1-2 days Patient Instructions/Handouts: Dilantin Toxicity (ED) Activity/Diet/Wound Care/Special Instructions: Please see your PCP and neurologist. You will need to repeat Dilantin levels. Discharge Disposition: HOME SELF-CARE
== END 2024-06-23 10:53 | disposition home or self-care (01) ==
LOC: EC 11:06 → 6NMEDSUR 14:38
PROVIDERS: ADMIT Student in an Organized Health Care Education/Training Program; ATTEND Student in an Organized Health Care Education/Training Program
DX: I95.1 Orthostatic hypotension (principal); R26.89 Other abnormalities of gait and mobility; N17.9 Acute kidney failure, unspecified; D75.89 Other specified diseases of blood and blood-forming organs; G40.909 Epilepsy, unspecified, not intractable, without status epilepticus; E78.5 Hyperlipidemia, unspecified; E03.9 Hypothyroidism, unspecified; M81.0 Age-related osteoporosis without current pathological fracture; E11.65 Type 2 diabetes mellitus with hyperglycemia; Z66 Do not resuscitate; Z85.828 Personal history of other malignant neoplasm of skin; Z87.891 Personal history of nicotine dependence; Z79.890 Hormone replacement therapy; Z79.83 Long term (current) use of bisphosphonates; Z79.899 Other long term (current) drug therapy
CPT/HCPCS: 96372 ×3; 99285; 36415; 93005; 93306; 80061; 80053 ×2; 82607; 82550; 80185; 82746; 85025 ×2; 85610; 85730; 83036; 71046; 93880; 70450; G0378 ×3; J1644 ×3